=== PATIENT | female | born 1970 | race Caucasian/White ===

== ENCOUNTER 2018-06-18 13:37 | Emergency (ER) | payer OTHER ==
[~2018-06-18] VITALS: Ht 160 cm; Wt 72.6 kg
[2018-06-18 14:15] VITALS: BP_SYST 127
--- NOTE | 2018-06-18 14:45 | NUR ---
Note juan antonio in EDM - 06/18/18 at 1457 by [email or web address] Pt placed to ER bed . Pt c/o right eye redness since Wednesday, no change in visual acuity. Denies trauma or injury to eye.
--- NOTE | 2018-06-18 14:45 | NUR ---
Pt placed to ER bed . Pt c/o right eye redness since Wednesday, no change in visual acuity. Denies trauma or injury to eye.
--- NOTE | 2018-06-18 14:50 | NUR ---
Dr. Valverde at bedside.
[2018-06-18 15:05] VITALS: BP_SYST 126
--- NOTE | 2018-06-18 15:28 | NUR ---
Note blackasim in EDM - 06/18/18 at 1611 by [email or web address] Patient given written and verbal discharge instructions and verbalizes understanding. ER discussed with patient the results and treatment provided. Patient in stable condition. ID arm band removed. Rx given. Patient educated on pain management and to follow up with PMD. Pain Scale 0/10. Opportunity for questions provided and answered. Medication side effect fact sheet provided.
--- NOTE | 2018-06-18 15:28 | NUR ---
Patient given written and verbal discharge instructions and verbalizes understanding. ER MD discussed with patient the results and treatment provided. Patient in stable condition. ID arm band removed. Rx of Tylenol given. Patient educated on pain management and to follow up with PMD. Pain Scale 0/10. Opportunity for questions provided and answered. Medication side effect fact sheet provided.
== END 2018-06-18 15:28 | disposition home or self-care (01) ==
LOC: SED 13:37
DX: S05.11XA Contusion of eyeball and orbital tissues, right eye, initial encounter (principal); R03.0 Elevated blood-pressure reading, without diagnosis of hypertension; Z88.6 Allergy status to analgesic agent; X58.XXXA Exposure to other specified factors, initial encounter; Y93.89 Activity, other specified; Y92.89 Other specified places as the place of occurrence of the external cause; Y99.8 Other external cause status
CPT/HCPCS: 99282